=== PATIENT | male | born 1945 | race Caucasian/White ===

== ENCOUNTER 2016-11-03 11:10 | Outpatient (CLI) ==
[2014-10-07 13:50] VITALS: BMI 23.7
[2016-11-03 13:22] LABS: BASOPHILS # (AUTO) 0.1 K/uL (0-0.2); BASOPHILS % (AUTO) 1.5 % (0.0-3.0); EOSINOPHILS # (AUTO) 0.3 K/ul (0.0-0.7); EOSINOPHILS % (AUTO) 5.8 % (0.0-7.0); HEMATOCRIT 42.9 % (42.0-52.0); IMMATURE GRANULOCYTE % (AUTO) 0.2 % (0.0-5.0); LYMPHOCYTES # (AUTO) 1.8 K/uL (0.60-3.4); LYMPHOCYTES % (AUTO) 31.2 (10.0-50.0); MEAN CORPUSCULAR HEMOGLOBIN 30.9 pg (27.0-31.0); MEAN CORPUSCULAR VOLUME 88.3 fl (80.0-94.0); MONOCYTES # (AUTO) 0.4 K/uL (0.4-2.0); MONOCYTES % (AUTO) 6.8 (0-10); NEUTROPHILS # (AUTO) 3.2 K/ul (2.0-6.9); NEUTROPHILS % (AUTO) 54.5; PLATELET COUNT 241 10^3/uL (140-440); RED BLOOD COUNT 4.86 10^6/ul (4.70-6.10); WHITE BLOOD COUNT 5.84 K/ul (4.2-10.2)
[2016-11-03 14:05] LABS: ALBUMIN 4.1 g/dL (3.4-5.0); ALBUMIN/GLOBULIN RATIO 1.28; ANION GAP 16.6; BILIRUBIN,TOTAL 0.55 mg/dL (0.00-1.20); BUN/CREATININE RATIO 13.25; CALCIUM 9.5 mg/dL (8.2-10.2); CHOL/HDL RATIO 4.1 (4.5-6.4); CREATININE 0.83 mg/dL (0.60-1.10); POTASSIUM 4.6 mmol/L (3.5-5.1); TOTAL PROTEIN 7.3 g/dL (5.8-8.1)
== END 2016-11-03 11:11 | disposition home or self-care (01) ==
LOC: LAB 11:10
PROVIDERS: ATTEND Emergency Medicine
DX: E78.5 Hyperlipidemia, unspecified (principal); I10 Essential (primary) hypertension; Z12.5 Encounter for screening for malignant neoplasm of prostate
CPT/HCPCS: 36415; 80053; 80061; 84443; 85025

== ENCOUNTER 2017-03-21 16:11 | Outpatient (CLI) ==
[2014-10-07 13:50] VITALS: BMI 23.7
[2017-03-21 16:38] LABS: BASOPHILS # (AUTO) 0.1 K/uL (0-0.2); BASOPHILS % (AUTO) 0.9 % (0.0-3.0); EOSINOPHILS # (AUTO) 0.1 K/ul (0.0-0.7); EOSINOPHILS % (AUTO) 1.3 % (0.0-7.0); HEMATOCRIT 43.2 % (42.0-52.0); HEMOGLOBIN 15.1 g/dl (14.0-18.0); IMMATURE GRANULOCYTE % (AUTO) 0.3 % (0.0-5.0); MEAN CORPUSCULAR HEMOGLOBIN 31.2 pg (27.0-31.0); MEAN CORPUSCULAR VOLUME 89.3 fl (80.0-94.0); MONOCYTES # (AUTO) 0.7 K/uL (0.4-2.0); MONOCYTES % (AUTO) 7.4 (0-10); NEUTROPHILS # (AUTO) 5.9 K/ul (2.0-6.9); NEUTROPHILS % (AUTO) 67.1; PLATELET COUNT 237 10^3/uL (140-440); RED BLOOD COUNT 4.84 10^6/ul (4.70-6.10); WHITE BLOOD COUNT 8.79 K/ul (4.2-10.2)
[2017-03-21 19:18] LABS: ALBUMIN 4.3 g/dL (3.4-5.0); ALBUMIN/GLOBULIN RATIO 1.16; ANION GAP 14.3; BILIRUBIN,TOTAL 0.56 mg/dL (0.00-1.20); BUN/CREATININE RATIO 13.79; CALCIUM 10.2 mg/dL (8.2-10.2); CHOL/HDL RATIO 4.4 (4.5-6.4); CREATININE 0.87 mg/dL (0.60-1.10); POTASSIUM 4.3 mmol/L (3.5-5.1)
== END 2017-03-21 16:12 | disposition home or self-care (01) ==
LOC: LAB 16:11
PROVIDERS: ATTEND Emergency Medicine
DX: E78.5 Hyperlipidemia, unspecified (principal); I10 Essential (primary) hypertension; N40.1 Benign prostatic hyperplasia with lower urinary tract symptoms
CPT/HCPCS: 36415; 80053; 80061; 84443; 85025

== ENCOUNTER 2017-06-21 11:58 | Outpatient (CLI) | payer OTHER ==
[2014-10-07 13:50] VITALS: BMI 23.7
== END 2017-06-21 11:59 | disposition home or self-care (01) ==
LOC: RHC-LAB 11:58
PROVIDERS: ATTEND Emergency Medicine
DX: E78.5 Hyperlipidemia, unspecified (principal); I10 Essential (primary) hypertension
CPT/HCPCS: 36415; 80053; 80061; 84443; 85025

== ENCOUNTER 2017-08-15 08:20 | Day surgery (SDC) ==
[2014-10-07 13:50] VITALS: BMI 23.7
[2017-08-15] MEDS ORDERED: LIDOCAINE 1% 20 ML MDV ID STA (08:53)
[2017-08-15] MEDS ORDERED: VERSED ONE (10:22)
[2017-08-15] MEDS ORDERED: DIPRIVAN 20 ML VIAL IVP ONE (10:22)
[2017-08-15 13:17] VITALS: BP 118/76; TEMP 98.5
--- NOTE | 2017-08-16 11:29 | OP ---
INDICATIONS FOR PROCEDURE: 72-year-old gentleman presents for colonoscopy exam. He has a past history of adenomatous polyps removed by colonoscopy June of 2013. This was done in [place]. He presents now for surveillance exam. MEDICATIONS: SEE ANESTHESIA NOTES. PROCEDURE: COLONOSCOPY, SNARE POLYPECTOMY. REPORT: The risks, benefits, alternatives and limitations were discussed in detail with the patient. Informed consent was obtained. After adequate sedation was achieved, a digital rectal exam revealed good tone, no masses. The colonoscope was introduced into the rectum and advanced under direct visual guidance to the cecum. The cecum was identified by the appendiceal orifice and IC valve. I then slowly withdrew the scope in a circumferential manner examining the mucosa quite carefully. I looked on the proximal and distal side of folds and flexures as best as possible. I was able to retroflex the scope in the right colon and the left colon to increase visualization. In the ascending colon there were a few small mouth diverticula and a few small mouth diverticula scattered throughout the sigmoid. In the distal sigmoid there was a 5 to 6 mm sessile polyp that I removed by snare technique. On retroflex view of the anal canal there are small 1+ internal hemorrhoid. No other abnormalities are noted. The prep was good. The withdrawal time was 7 minutes and 20 seconds. The patient tolerated the procedure well with stable vital signs and pulse oximetry throughout. IMPRESSION: 1. SCATTERED DIVERTICULOSIS 2. SMALL POLYPS SUCCESSFULLY REMOVED 3. SMALL INTERNAL HEMORRHOID RECOMMENDATIONS: 1. High fiber diet 2. Office visit as needed 3. Await polyp pathology. If everything is benign as expected, I recommend repeat examination again in 5 years, sooner if there are any signs or symptoms to indicate otherwise. CC: DR. BLANCHE AGUILERA
== END 2017-08-15 11:20 | disposition home or self-care (01) ==
LOC: SURG 08:20
PROVIDERS: ATTEND Internal Medicine Gastroenterology
DX: Z86.010 Personal history of colon polyps (principal); K51.40 Inflammatory polyps of colon without complications; K57.30 Diverticulosis of large intestine without perforation or abscess without bleeding; K64.0 First degree hemorrhoids; Z09 Encounter for follow-up examination after completed treatment for conditions other than malignant neoplasm

== ENCOUNTER 2017-09-27 10:25 | Outpatient (CLI) | payer OTHER ==
[2014-10-07 13:50] VITALS: BMI 23.7
== END 2017-09-27 10:26 | disposition home or self-care (01) ==
LOC: RHC-LAB 10:25
PROVIDERS: ATTEND Emergency Medicine
DX: E78.5 Hyperlipidemia, unspecified (principal); I10 Essential (primary) hypertension
CPT/HCPCS: 36415; 80053; 80061; 84443; 85025

== ENCOUNTER 2018-05-01 11:36 | Outpatient (CLI) | payer OTHER ==
[2014-10-07 13:50] VITALS: BMI 23.7
== END 2018-05-01 11:37 | disposition home or self-care (01) ==
LOC: LAB 11:36
PROVIDERS: ATTEND Family Medicine
DX: Z01.812 Encounter for preprocedural laboratory examination (principal)
CPT/HCPCS: 36415; 82565

== ENCOUNTER 2018-05-07 07:56 | Outpatient (CLI) | payer OTHER ==
[2014-10-07 13:50] VITALS: BMI 23.7
--- NOTE | 2018-05-07 09:54 | MRI ---
EXAM: MRI brain without and with IV contrast. DATE: 05/07/2018. HISTORY: Abnormal findings on diagnostic imaging of the central nervous system. TECHNIQUE: Sagittal T1W postcontrast, axial T2W, axial FLAIR, axial T1W pre and postcontrast, axial DWI, coronal T1W postcontrast, and coronal T2W GRE sequences of the brain were obtained using 1.2 [place] magnet. CONTRAST: Omniscan - 15 ml IV. COMPARISON: MRI brain 04/03/2080. FINDINGS: The ventricles, cisterns, and and many sulci are enlarged due to involutional change. Rig ht temporal tip is substantially larger than left. No midline shift, mass effect or abnormal extra-a xial fluid collection is apparent. Narrow T2W, T1W, FLAIR, or DWI signal abnormalities identified in the pontine region of interest on previous MRI. No acute infarct, hemorrhage or enhancing neoplasm is identified. No abnormal contrast enhancement is identified in the brain, meninges or dura. Minor T2W/FLAIR hyperintensity is observed in the white matter abutting each lateral ventricle. Mildly pr ominent Virchow-Patrick spaces are observed in each basal ganglia inferiorly. A few 2 mm diameter, T2W /FLAIR bright, non-enhancing foci are scattered in the frontal white matter bilaterally. The genao - white matter differentiation is normal. No migration or diverticulation abnormality is identified. The amygdala, hippocampus, and parahippocampal gyri are similar in size, configuration, and signal in tensity bilaterally. The 7th/8th cranial nerve complexes, cerebellopontine angles, and visible cervi ranjan spinal cord are normal. There is no cerebellar tonsillar ectopia. The pituitary gland is small in size, with CSF filling part of the pituitary fossa. Corpus callosum is normal in size and configu ration. Vertebrobasilar arterial system is tortuous, and slightly flattens the right inferior surfac e of the samuel; however, no signal abnormalities identified within the brainstem at this level. Flow voids are present in the major intracranial arteries and in the dural venous sinuses. No aneurysm, A VM or dural venous sinus thrombosis is apparent. No orbit abnormality is identified. The mastoid ai r cells are unremarkable. There is opacification of a few ethmoid air cells bilaterally. Minor muco ilene thickening is demonstrated in the frontal sinuses, left maxillary sinus, and several ethmoid air cells bilaterally. No neck mass or lymphadenopathy is detected. Thickening of the inner table of th e frontal bone appears benign. No calvarial neoplasm or acute fracture is evident. T1W bone marrow signal is brighter than typically seen. IMPRESSIONS: 1. No acute infarct, hemorrhage, enhancing neoplasm or hydrocephalus. 2. Previously identified DWI bright signal in the right side samuel does not have corresponding abnorm ality on the current exam and may have been an artifact. 3. Minor cerebral leukomalacia - likely small vessel disease. 4. Moderate cerebral and mild cerebellar atrophy. 5. Small pituitary gland. No pituitary neoplasm. 6. Worsening paranasal sinus disease / sinusitis. 7. Mild, benign hyperostosis frontalis interna. 8. Bright marrow signal - consider osteopenia.
== END 2018-05-07 07:57 | disposition home or self-care (01) ==
LOC: RAD 07:56
PROVIDERS: ATTEND Family Medicine
DX: R90.89 Other abnormal findings on diagnostic imaging of central nervous system (principal)

== ENCOUNTER 2018-09-27 12:37 | Outpatient (CLI) | payer OTHER ==
[2014-10-07 13:50] VITALS: BMI 23.7
== END 2018-09-27 12:38 | disposition home or self-care (01) ==
LOC: RHC-LAB 12:37 → FCC-LAB 12:38
PROVIDERS: ATTEND Family Medicine
DX: G30.8 Other Alzheimer's disease (principal); R97.20 Elevated prostate specific antigen [PSA]; I10 Essential (primary) hypertension; E78.5 Hyperlipidemia, unspecified; Z11.59 Encounter for screening for other viral diseases
CPT/HCPCS: 36415; 80053; 80061; 85025; 86803